=== PATIENT | female | born 1980 | race Two or more races ===

== ENCOUNTER 2018-03-19 09:36 | Emergency (ER) | payer MEDICAID ==
[~2018-03-19] VITALS: Ht 160 cm; Wt 99.3 kg
[2018-03-19 09:45] VITALS: Ht 160 cm; Wt 99.3 kg
[2018-03-19 11:55] VITALS: BP 137/71
== END 2018-03-19 11:55 | disposition home or self-care (01) ==
LOC: ED 09:36
DX: M06.80 Other specified rheumatoid arthritis, unspecified site (principal); E66.9 Obesity, unspecified; Z68.39 Body mass index [BMI] 39.0-39.9, adult
CPT/HCPCS: J1100; J1885

== ENCOUNTER 2018-03-31 17:57 | Emergency (ER) | payer MEDICAID ==
[~2018-03-31] VITALS: Ht 167.6 cm; Wt 102.5 kg
[2018-03-31 18:17] VITALS: Ht 167.6 cm; Wt 102.5 kg
[2018-03-31 22:54] VITALS: BP 129/88
== END 2018-03-31 22:54 | disposition home or self-care (01) ==
LOC: ED 17:57
DX: M06.9 Rheumatoid arthritis, unspecified (principal)
CPT/HCPCS: J1885; J3301